=== PATIENT | male | born 1965 | race Caucasian/White ===

== ENCOUNTER → 2018-08-26 12:28 | Outpatient (CLI) | payer BC, SELFPAY ==
--- NOTE | 2018-08-26 12:33 | RAD_ITS ---
STUDY: X-RAY - LUMBAR SPINE REASON FOR EXAM: Male, 53 years old. Left leg pain. TECHNIQUE: 5 view(s) of the lumbar spine were obtained. COMPARISON: None FINDINGS: Normal lumbar lordosis. There is no substantial scoliosis. There is a normal alignment of the vertebrae. There is mild multilevel endplate spondylosis of the lumbar vertebrae. There is mild multi-level degenerative disc disease with multi-level disc space narrowing. There is no demonstrated fracture. The soft tissue structures are unremarkable. RAD/L/S Spine Min 4 Views IMPRESSION: Mild degenerative changes. No acute abnormality. Electronically Signed: Agapito Serrano MD at 19:32 EDT , Service support ,
== END ==
PROVIDERS: Family Provider Family Medicine; PCP Family Medicine; Referring Provider Family Medicine; Visit Provider Family Medicine
DX: M54.40 Lumbago with sciatica, unspecified side (principal)
CPT/HCPCS: 72110

== ENCOUNTER → 2018-08-31 07:12 | Outpatient (CLI) | payer BC, SELFPAY ==
--- NOTE | 2018-08-31 07:35 | MRI_ITS ---
STUDY: MRI LUMBAR SPINE WITHOUT CONTRAST REASON FOR EXAM: Male, 53 years old. low back pain radiates into L leg no known injury, can hardly bear weight on L leg TECHNIQUE: Standardized fat and water weighted pulse sequences were obtained in the sagittal and axial planes. COMPARISON: None FINDINGS: T12-L1: Normal endplates. Normal disc height, hydration and morphology. Normal bilateral facet joints. Normal central canal and bilateral lateral recesses. Normal bilateral intervertebral neural foramina. Normal lumbar lordosis. There is no substantial scoliosis. Normal conus medullaris that terminates at the L1 level. L1-2: Endplate spondylosis. Decreased disc height and small circumferential disc bulge. Degenerative changes of the bilateral facet joints. Mild narrowing of the central canal and bilateral intervertebral neural foramina. L2-3: Endplate spondylosis. Decreased disc height and small circumferential disc bulge. Degenerative changes of the bilateral facet joints. Mild narrowing of the central canal and bilateral intervertebral neural foramina. L3-4: Endplate spondylosis. Decreased disc height and small circumferential disc bulge. Degenerative changes of the bilateral facet joints. Mild narrowing of the central canal and bilateral intervertebral neural foramina. L4-5: Endplate spondylosis. Decreased disc height and small circumferential disc bulge. Superimposed left para midline and left foraminal disc herniation impinging on the left L5 and left L4 nerve roots respectively. Degenerative changes of the bilateral facet joints. Mild narrowing of the central canal. Severe narrowing of the bilateral intervertebral neural foraminal. L5-S1: Endplate spondylosis. Decreased disc height and small circumferential disc bulge. Degenerative changes of the bilateral facet joints. Mild narrowing of the central canal and bilateral intervertebral neural foramina. Normal visualized sacral ala. Normal visualized paraspinous soft tissue structures. MRI/Spine Lumbar (Routine) IMPRESSION: Multilevel degenerative changes, as described above. L4-5 left para midline and left foraminal disc herniation. Electronically Signed: Alec Lancaster MD at 12:06 EDT Tel , Service support ,
== END ==
PROVIDERS: Family Provider Family Medicine; PCP Family Medicine; Referring Provider Family Medicine; Visit Provider Family Medicine
DX: M54.40 Lumbago with sciatica, unspecified side (principal)
CPT/HCPCS: 72148

== ENCOUNTER 2018-09-07 10:30 | Outpatient (RCR) | payer BC, SELFPAY ==
--- NOTE | 2018-09-05 18:05 | HP.PTEVAL_ITS ---
Patient's Visit Information LUCY IZQUIERDO is a 53 year old M referred to Physical Therapy by Selvin Jones with a diagnosis of Low back pain with sciatica. Date of Evaluation: 08/30/18 Physical Therapist: Bogdan Sung - Visit Plan Frequency: 2x /Week Duration: 4 Weeks Plan: Start with neutral spine nerve glides, TA contraction. mild traction with progression into extension mobility as tolerated. May use modalities to reduce irritability. - Subjective Subjective: Pt. is here today for his initial evaluation with diagnosis of lumbago with radiculopathy. Pt. reprots having icnreased LLE pain for about 6 weeks now. He was going to a chiropractor x2 per day for a 1 week, but had increased symptoms. he reports no mechanism of injry, but has had increased L hip pain and pain radiating down his leg through anterior thigh and castañeda Pt. reprots no N/T, but has constant pain that worsens with walking and standing. Pt. has been off work due to inability to complete job demands. Pt. works at [employer] in [place]. Pt. is hopeful to reduce symptoms in order to get back to work without limitations. Pt. to have MRI tomorrow. - Pain L hip and leg Pain Intensity (Out of 10): 6 Pain Intensity Range: 4, 10 - Objective POSTURE: Pt. has R lateral lean in stance, minimal LLE wt. bearing. Pt. does not appear to have a positive lateral shift. Pt. has decreased lumbar lordosis with slight flexed posture. PALPATION: Pt. has increased tenderness at L lumbar paraspinasl, pain at L3-L5 and hypomobility noted. Pt. also had increased soreness at L piriformis, No pain on R side of spine or leg. NEURO: Pt. has decreased DTR on LLE, 1+ achilles and 1+ patellar. 2+ on R side both. Pt. has normal sensation to light and sharp touch. ROM: LUMBAR SPINE: flexion- min loss increase NW upon returning, ext mod loss increase NW, SB min loss bilat increase NW, rotation nil/min loss NE. HIPS: Normal ROM bilaterally, tight HS bilat, mild increase in symptoms with L hip ER. MMT: RLE- 5/5 throughout; LLE- ankle 4+/5 DF, 4+/5 PF; knee- ext 4/5, flexion 4+/5; hip-flexion 4+/5, abd 4+/5, ext 4+/5. GAIT: Pt. ambulates with normal pattern for initially with good posture and step length, but worsens after ~10 steps with decreased step length, flexed posture, increased L sided pain with wt bearing. STAIRS: step to pattern - Goals Goal 1:: Pt. to be I with HEP. Goal Time Frame: 4-6 Weeks Goal 2:: Pt. to sleep throughout the night with 0-2/10 increasing quality of life. Goal Time Frame: 4-6 Weeks Goal 3:: Pt. to walk unlimited distances with 0-2/10 pain allowing for increased ability to tolerate all social and recreational activities. Goal Time Frame: 4-6 Weeks Goal 4:: Pt. to have increased LLE strength by 1/2 grade of all effected musculature. Goal Time Frame: 4-6 Weeks Goal 5:: Pt. to have increased lumbar ROM by 25% in all directions without increase in symptoms. Goal Time Frame: 4-6 Weeks - Rehabilitation Potential Physical Therapy Diagnosis: Pt. has signs and symptoms consistent with a disc hernitation in the L3-L5 range with L lateral/posterior translation. Pt. is to have an MRI tomorrow to rule in or out. My fear is that it might not be reducible due to severity of symptom and how is symptoms responded to movements this date. Rehabilitation Potential: Fair - Anticipated Interventions Patient/Client Instruction: Educate patient on: Condition, Plan of Care, Risk Factors, Benefits of Fitness Program For the Purpose of:: To improve health and function, To foster healthy habits, To improve decision making, To facilitate caregiver knowledge, To improve self management, To prevent re-injury, To improve ability to perform tasks related to life management, To improve tolerance to ADL's Therapeutic Exercise to Include: Strength training, Power training, Postural training, Flexibilty training, Dynamic Lumbar Stabilization, Zhou Exercises, Scapular Strength/Stabilization For the Purpose of:: To decrease pain, To decrease swelling/inflammation, To increase ROM, To improve nutrient delivery to tissue, To improve gait and locomotor functions, To improve health of tissue, To decrease soft tissue restriction, To increase flexibility/ROM Manual Therapy Techniques to Include: Mobilization, Passive ROM, Functional dry needling, Soft tissue mobilization For the Purpose of:: To decrease pain, To decrease swelling/inflammation, To increase ROM, To improve nutrient delivery to tissue, To increase oxygenation perfusion, To improve muscle performance and motor function IF ES: Yes Cryotherapy (ice pack, ice massage): Yes Thermo therapy (hot pack): Yes Ultrasound (thermal/non thermal): Yes Pelvic traction prone: Yes Pelvic traction supine: Yes For the Purpose of:: To decrease pain, To decrease swelling/inflammation, To increase ROM, To improve nutrient delivery to tissue, To improve health of tissue, To decrease soft tissue restriction, To increase flexibility/ROM Thank you for the opportunity to evaluate your patient. For Medicare and Medicare HMO plans, please review the plan of care and approve it. It will need to be FAXED BACK to us at [phone] for Medicare purposes. Please let me know if there are questions or concerns regarding this plan of care. Physician Signature: Date:
--- NOTE | 2018-11-02 11:26 | HP.PTDCSUM_ITS ---
HP - PT D/C Summary It has been my pleasure to treat LUCY IZQUIERDO under orders from Selvin Jones, for the diagnosis of Low back pain with sciatica for a total of 4 visit(s). Discharge Date: 09/07/18 Please see the following information for a summary of their discharge status. - Subjective Subjective: Pt. reports calling his physician who reports that his case was forward to [facility], but he has not heard from them yet. He reports having no change in symptoms. - Pain L hip and leg Pain Intensity (Out of 10): 8 - Overall Improvement % Improvement: 25 - Objective Objective/Function: Pt. reports increased relief post traction, but after ~50ft. symptoms returned. Pt. contiunes to have LLE weakness, most notably at L ankle DF and L knee ext 4-/5 both. I talked with patient to call [facility] to check to make sure that they have case and paper work Pt. cosents. - Goals Goal 1:: Pt. to be I with [facility]. Goal Progress: Goal Met Goal 2:: Pt. to sleep throughout the night with 0-2/10 increasing quality of life. Goal Progress: Not Progressing Goal 3:: Pt. to walk unlimited distances with 0-2/10 pain allowing for increased ability to tolerate all social and recreational activities. Goal Progress: Not Progressing Goal 4:: Pt. to have increased LLE strength by 1/2 grade of all effected musculature. Goal Progress: Not Progressing Goal 5:: Pt. to have increased lumbar ROM by 25% in all directions without increase in symptoms. Goal Progress: Not Progressing - Plan Plan: Start with neutral spine nerve glides, TA contraction. mild traction with progression into extension mobility as tolerated. May use modalities to reduce irritability. - D/C Information Discharge Comments: Pt. was treated with neutral spine core stability, slight lossings traction to tilt pelvis in order to reduce stress on nerves. We also trialed some nerve glides and light extension exsercises, but did not tolerated. Pt. is to follow up with [facility] for consult after MRI showed multiple HNP. Pt. to be DC to [facility] and physician at this point in time. If there are questions or concerns regarding this patient's physical therapy, please feel free to call me at [phone]. Thank you for the referral of this patient. Sincerely, Bogdan Sung
== END 2018-09-07 19:00 | disposition home or self-care (01) ==
LOC: PT 10:30
PROVIDERS: Family Provider Family Medicine; PCP Family Medicine; Referring Provider Family Medicine; Visit Provider Family Medicine
DX: M54.40 Lumbago with sciatica, unspecified side (principal)
CPT/HCPCS: 97014; 97110; 97140; 97161; G0283

== ENCOUNTER 2018-12-12 10:00 | Outpatient (RCR) | payer BC, SELFPAY ==
--- NOTE | 2018-11-08 10:26 | HP.PTEVAL_ITS ---
Patient's Visit Information LUCY IZQUIERDO is a 53 year old M referred to Physical Therapy by MONICA AMAYA with a diagnosis of S/P LUMBAR MICRODISECTOMY. Date of Evaluation: 11/08/18 Physical Therapist: Josesito Hardy PT, - Visit Plan Frequency: 3x /Week Duration: 4 Weeks Plan: POSTURE/BODY MCHANICS,DLS,LUMBAR ROM,GENERAL CONDITIONING,LE FLEXABLITY.PRE'S LE - Subjective Findings: This 53 y/o male presents to physical therapy with s/p lumbar microdisectomy on 10/10/18done by Rip at [facility]. Patient had lumbar pain with left leg radiculopathy.Patient d/c same day. Patient seen chiroproctor didnt help. Patient followed up DR Jones had MRI showed HNP L4-5.Patient tried PT didnt help. Patient seen DR james ames Oct 28. Patient had some drainage. Patient has no leg pain ,symmtrical lumbar pain stiffness.Denies parathesia/tingling. Coughing/sneezing -. Bowel/bladder -. Patient sleeping okay. Patient symptoms affect QOL and job demnads/housework tasks. SOCIAL: . 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 GAIT: mild foward posture anatalgic gait right side. NEURO: denies parathesia/tingling ,reflexes L3-4,L4-5,L5-S1 1/3. SYMMTRIES: algin. LUMBAR ROM: flexion mod loss,extension mod loss,side glides mod loss. FLEXABLITY : hams min loss. MMT: quads/hams 4/5 right,left 4-/5,hip flexion 4-/5,ankle 4/5 - Special Tests L/S Slump test left side: Negative L/S Slump test right side: Negative L/S Left Straight Leg Raise: Negative L/S Right Straight Leg Raise: Negative L/S Left Femoral Nerve Tension: Negative L/S Right Femoral Nerve Tension: Negative - Goals Goal 1:: Independant with HEP Goal Time Frame: 4-6 Weeks Goal 2:: Independant with posture /BODY MECHANICS Goal Time Frame: 4-6 Weeks Goal 3:: Patient inmprove lumbar ROM for function of recovery Goal Time Frame: 4-6 Weeks Goal 4:: Patient to normalize gait with antalgic pattern Goal Time Frame: 4-6 Weeks Goal 5:: Patient increase left leg strengtgh to 4/5 to improve with gait. Goal Time Frame: 4-6 Weeks Goal 6:: Patient to improve FLORI back score by 5 points to improve QOL. Goal Time Frame: 4-6 Weeks - Rehabilitation Potential Physical Therapy Diagnosis: This aptient underwent s/p lumbar microdisectomy with decrease lumbar ROM ,strength,gait which impairs ADL'S and job demands thus benifit from skilled PT Rehabilitation Potential: Good - Anticipated Interventions Patient/Client Instruction: Educate patient on: Condition, Plan of Care For the Purpose of:: To decrease pain, To increase ROM, To improve muscle performance and motor function, To improve ability to perform ADL's, To increase tolerance to activity/condition/position, To improve ability of physical actions for home/community/work/leisure, To improve health of tissue, To decrease soft tissue restriction, To increase flexibility/ROM, To reduce risk of recurrence, To improve health and function, To improve ability to perform tasks related to life management Therapeutic Exercise to Include: Strength training, Body mechanics, Postural training, Flexibilty training, Active ROM, Dynamic Lumbar Stabilization Comment: LE For the Purpose of:: To decrease pain, To increase ROM, To improve muscle performance and motor function, To increase tolerance to activity/condition/position, To improve ability of physical actions for braydon e/community/work/leisure, To improve health of tissue, To decrease soft tissue restriction, To reduce risk of recurrence, To improve ability to perform tasks related to life management TENS: Yes IF ES: Yes Cryotherapy (ice pack, ice massage): Yes Thermo therapy (hot pack): Yes Ultrasound (thermal/non thermal): Yes For the Purpose of:: To decrease pain, To decrease swelling/inflammation, To improve nutrient delivery to tissue, To increase oxygenation perfusion, To improve health of tissue, To decrease soft tissue restriction, To increase flexibility/ROM Thank you for the opportunity to evaluate your patient. For Medicare and Medicare HMO plans, please review the plan of care and approve it. It will need to be FAXED BACK to us at [phone] for Medicare purposes. For Medicare only, by signing this I certify the plan of care. Please let me know if there are questions or concerns regarding this plan of care. Physician Signature: Date:
--- NOTE | 2018-12-12 10:35 | HP.PTDCSUM ---
HP - PT D/C Summary It has been my pleasure to treat LUCY IZQUIERDO under orders from MONICA AMAYA, for the diagnosis of S/P LUMBAR MICRODISECTOMY for a total of 13 visit(s). Discharge Date: 12/12/18 Please see the following information for a summary of their discharge status. - Subjective Subjective: Doing ready to RTW . No pain just stiffness in lumbar. No leg pain. Return to all prior of activity - Pain Bilateral Back Pain Intensity (Out of 10): 1 - Overall Improvement % Improvement: 70 - Objective Objective/Function: POSTURE: WNL. GAIT: NORMAL D[place]ON. NEURO: INTACT. MMT: QUADS/HAMS/HIP /ANKLE 5/5. LUMBAR ROM:FLEXION MIN LOSS,EXTESNION WNL, SISD GLIDES MIN LOSS. HAMS: TIGHT. -SLR - Goals Goal 1:: Independant with HEP Goal Progress: Goal Met Goal 2:: Independant with posture /BODY MECHANICS Goal Progress: Goal Met Goal 3:: Patient inmprove lumbar ROM for function of recovery Goal Progress: Goal Met Goal 4:: Patient to normalize gait with antalgic pattern Goal Progress: Goal Met Goal 5:: Patient increase left leg strengtgh to 4/5 to improve with gait. Goal Progress: Goal Met Goal 6:: Patient to improve FLORI back score by 5 points to improve QOL. Goal Progress: Goal Met - Plan Plan: D/C TO HEP AND RTW - D/C Information Discharge Comments: RTW If there are questions or concerns regarding this patient's physical therapy, please feel free to call me at [phone]. Thank you for the referral of this patient. Sincerely, Josesito Hardy, PT, Cert MDT, OCS
== END 2018-12-12 19:00 | disposition home or self-care (01) ==
LOC: PT 10:00
PROVIDERS: Family Provider Family Medicine; PCP Family Medicine
DX: Z98.890 Other specified postprocedural states (principal)
CPT/HCPCS: 97110; 97161; 97530

== ENCOUNTER 2022-02-03 11:30 | Outpatient (CLI) | payer BC, SELFPAY ==
--- NOTE | 2022-02-03 11:35 | RAD_ITS ---
STUDY: X-RAY - LUMBAR SPINE REASON FOR EXAM: Male, 57 years old. LOW BACK PAIN RADIATES TO LEFT HIP LUMBAGO WITH SCIATICA TECHNIQUE: XR Spine Lumbar Min 4 Views COMPARISON: None FINDINGS: There is straightening of the normal lumbar lordosis. There is no substantial scoliosis. There is a normal alignment of the vertebrae. There is multilevel endplate spondylosis of the lumbar vertebrae. There is multi-level degenerative disc disease with multi-level disc space narrowing. The soft tissue structures are unremarkable. RAD/L/S Spine Min 4 Views IMPRESSION: Degenerative changes of the spine, as detailed above. Electronically Signed: Iván Varner MD at 14:23 EST ,
--- NOTE | 2022-02-03 11:35 | RAD_ITS ---
STUDY: X-RAY - PELVIS AND LEFT HIP REASON FOR EXAM: Male, 57 years old. LOW BACK PAIN RADIATES TO LEFT HIP HIP PAIN TECHNIQUE: XR Hip Unilateral with Pelvis when performed; 2-3 Views COMPARISON: None. FINDINGS: There is a non-specific bowel gas pattern. Normal visualized soft tissue structures. Normal bilateral iliac wings, sacroiliac joints and visualized sacrum. Normal bilateral superior and inferior pubic rami. Normal pubic symphysis. Normal bilateral ischial tuberosities. Normal visualized femoral head. Normal acetabulum. Normal hip joint. RAD/HIP, UNI W/ Pelvis 2-3 Views IMPRESSION: No acute findings. Electronically Signed: Iván Varner MD at 14:21 EST ,
== END 2022-02-03 23:59 | disposition home or self-care (01) ==
LOC: MTRAD 11:32
PROVIDERS: PCP Family Medicine; Referring Provider Family Medicine; Visit Provider Family Medicine
DX: M25.552 Pain in left hip (principal); M54.40 Lumbago with sciatica, unspecified side
CPT/HCPCS: 72110; 73502

== ENCOUNTER 2024-08-06 19:55 | Emergency (ER) | payer OTHER, SELFPAY ==
[2024-08-06 19:55] VITALS: BP 170/86; PULSE 68; RESP 16; TEMP 36.6; O2SAT 96; BMI 31.6
[2024-08-06 20:00] VITALS: O2SAT 96
--- NOTE | 2024-08-06 20:38 | RAD_ITS ---
EXAM: XR LEFT SHOULDER COMPLETE, 2 OR MORE VIEWS CLINICAL INDICATION: Injury/Pain TECHNIQUE: Two or more views of the left shoulder. COMPARISON: No relevant prior studies available. FINDINGS: BONES/JOINTS: Unremarkable. No acute fracture. No subluxation. Normal alignment. Preservation of the joint space. No sclerotic or destructive changes observed. SOFT TISSUES: Unremarkable. No soft tissue swelling or gas. No radiopaque foreign body. RAD/Shoulder min 2 Views IMPRESSION: Negative left shoulder x-rays. Electronically Signed: Iván Varner MD at 21:32 EDT ,
[2024-08-06] MEDS: Ibuprofen 600 MG Tablet PO (20:42)
--- NOTE | 2024-08-06 21:00 | RAD_ITS ---
STUDY: X-RAY - LUMBAR SPINE REASON FOR EXAM: Male, 59 years old. Injury/Pain TECHNIQUE: XR Spine Lumbar 2 Views COMPARISON: None FINDINGS: Normal lumbar lordosis. There is no substantial scoliosis. There is a normal alignment of the vertebrae. There is multilevel endplate spondylosis of the lumbar vertebrae. There is multi-level degenerative disc disease with multi-level disc space narrowing. There are atherosclerotic vascular calcifications. The soft tissue structures are unremarkable. RAD/Lumbar Spine 2 or 3 Views IMPRESSION: Degenerative changes of the spine, as detailed above. Electronically Signed: Iván Varner MD at 21:32 EDT ,
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
[2024-08-06 21:55] VITALS: BP 157/86; PULSE 71; O2SAT 95
[2024-08-06 22:06] VITALS: BP 152/74; PULSE 72; RESP 16; TEMP 36.6; O2SAT 96
== END 2024-08-06 22:07 | disposition home or self-care (01) ==
PROVIDERS: Emergency Provider Emergency Medicine; PCP Family Medicine; Visit Provider Emergency Medicine
DX: S39.012A Strain of muscle, fascia and tendon of lower back, initial encounter (principal); S46.912A Strain of unspecified muscle, fascia and tendon at shoulder and upper arm level, left arm, initial encounter; V53.5XXA Driver of pick-up truck or van injured in collision with car, pick-up truck or van in traffic accident, initial encounter
CPT/HCPCS: 72100; 73030; 99282